=== PATIENT | female | born 1985 | race American Indian/Alaskan Native ===

== ENCOUNTER → 2016-08-06 | Outpatient (CLI) | payer OTHER ==
--- NOTE | 2016-08-07 07:58 | US ---
EXAMINATION TYPE: US pelvis complete transvag DATE OF EXAM: 08/06/2016 6:35 PM COMPARISON: NONE CLINICAL HISTORY: Ovarian Cyst N28.20. TECHNIQUE: Transvaginal (TV) and Transabdominal (TA) Date of LMP: About 1 month ago EXAM MEASUREMENTS: Uterus: 6.9 x 3.9 x 4.1 cm cm Endometrial Stripe: 0.8 cm Right Ovary: 4.0 x 2.1 x 1.6 cm Left Ovary: 3.4 x 2.5 x 2.0 cm Findings: 1. Uterus: wnl 2. Endometrium: wnl 3. Right Ovary: wnl 4. Left Ovary: wnl 5. Bilateral Adnexa: Tiny amount of free fluid visualized adjacent to the left ovary 6. Posterior cul-de-sac: Tiny amount of free fluid visualized in the posterior cul de sac IMPRESSION: Tiny amount of free fluid. Otherwise unremarkable study.
== END | disposition home or self-care (01) ==
LOC: RADUSMAIN 17:52
PROVIDERS: ATTEND Family Medicine
DX: N83.209 Unspecified ovarian cyst, unspecified side (principal)
CPT/HCPCS: 76830; 76856

== ENCOUNTER 2017-07-06 10:39 | Emergency (ER) | payer OTHER ==
--- NOTE | 2017-07-06 13:19 | ED ---
Skin/Abscess/FB HPI - General Chief complaint: Skin/Abscess/Foreign Body Stated complaint: Boil Time Seen by Provider: 07/06/17 12:03 Source: patient, RN notes reviewed Mode of arrival: ambulatory Limitations: no limitations - History of Present Illness Initial comments: This is a 31-year-old female who presents to the emergency department with chief complaint of boil. Patient states that yesterday she noticed an area of swelling on her left buttock. She states that this area is painful. Patient states that she has a history of abscesses that have been drained in the past. Denies any fevers or chills. Denies any drainage from the abscess. Denies chest pain, shortness of breath, abdominal pain, nausea or vomiting, constipation or diarrhea, dysuria or hematuria, numbness or tingling, headache or vision changes. - Related Data Home Medications Medication Instructions Recorded Confirmed Insulin Aspart [NovoLOG] 0 unit SQ 07/18/14 02/15/15 Previous Rx's Medication Instructions Recorded Insulin Aspart [NovoLOG] 6 units SQ ACHS #1 vial 02/15/15 predniSONE 50 mg PO DAILY #5 tab 05/01/16 Sulfamethox-Tmp 800-160Mg [Bactrim 1 tab PO Q12HR #20 tab 07/06/17 DS 800-160 mg] Allergies Allergy/AdvReac Type Severity Reaction Status Date / Time fluconazole Allergy Rash/Hives Verified 07/06/17 11:11 Review of Systems ROS Statement: Those systems with pertinent positive or pertinent negative responses have been documented in the HPI. ROS Other: All systems not noted in ROS Statement are negative. Past Medical History Past Medical History: Diabetes Mellitus History of Any Multi-Drug Resistant Organisms: None Reported Past Surgical History: Adenoidectomy, Ear Surgery Past Psychological History: No Psychological Hx Reported Smoking Status: Current every day smoker Past Alcohol Use History: Occasional Past Drug Use History: None Reported General Exam - General Exam Comments Initial Comments: General: Awake and alert, well-developed; in no apparent distress. HEENT: Head atraumatic, normocephalic. Pupils are equal, round and reactive to light. Extraocular movements intact. Oropharynx moist without erythema or exudate. Neck: Supple. Normal ROM. Cardiovascular: Regular rate and rhythm. No murmurs, rubs or gallops. Chest symmetrical. Respiratory: Lungs clear to auscultation bilaterally. No wheezes, rales or rhonchi. Normal respiratory effort with no use of accessory muscles. Musculoskeletal: Normal ROM, no tenderness bilateral upper and lower extremities. Ambulating normally. Skin: [place], warm and dry without rashes. Approximately 1.5 cm area of fluctuance with overlying erythema and a small central pustule inner left buttock. No drainage noted. Neurological: Alert and oriented x3. CN II-XII grossly intact. Speech is fluent and answers are appropriate. No focal neuro deficits. Psychiatric: Normal mood and affect. No overt signs of depression or anxiety noted. Limitations: no limitations Course Vital Signs 07/06/17 11:08 Temperature 98.7 F Pulse Rate 80 Respiratory 16 Rate Blood Pressure 136/77 O2 Sat by Pulse 100 Oximetry Procedures - Incision & Drainage Consent Obtained: verbal consent Indication: abscess Site: buttock (left) Size (cm): 2 Anesthetic Used: lidocaine 1% Amount (mLs): 2 I&D Cleaning Method: Alcohol Wipe Scalpel Used: #15 I&D Drainage Obtained: Pus, Blood Culture Obtained?: No Patient Tolerated Procedure: well, no complications Medical Decision Making - Medical Decision Making This is a 31-year-old female who presents to the emergency department with chief complaint of boil. Patient has a 1.5 cm abscess on inner left buttock. I &D was performed. Patient tolerated well without complication. Educated patient that she is to allow the abscess to drain and to apply warm compresses. She will be discharged home with a prescription for Bactrim. Return parameters were discussed. She is in agreement with plan and voices understanding. All questions were answered. Disposition Clinical Impression: Abscess Disposition: HOME SELF-CARE Condition: Good Instructions: Abscess Incision and Drainage (ED) Additional Instructions: Please allow abscess to drain. May apply warm compresses to the area. Please take medications as prescribed. Please follow up with primary care provider within 1-2 days. Return to emergency department if symptoms should worsen or any concerns arise. Prescriptions: Sulfamethox-Tmp 800-160Mg [Bactrim DS 800-160 mg] 1 tab PO Q12HR #20 tab Referrals: Andres Guerra MD [Primary Care Provider] - 1-2 days Time of Disposition: 13:18
[2017-07-07 23:01] VITALS: BP 136/77; PULSE 80; RESP 16; TEMP 98.7
== END 2017-07-06 13:24 | disposition home or self-care (01) ==
LOC: EC 10:39
DX: L02.31 Cutaneous abscess of buttock (principal); E11.9 Type 2 diabetes mellitus without complications; F17.200 Nicotine dependence, unspecified, uncomplicated; Z79.4 Long term (current) use of insulin; Z88.8 Allergy status to other drugs, medicaments and biological substances
CPT/HCPCS: 10060; 99283

== ENCOUNTER → 2018-12-26 | Outpatient (CLI) | payer BC ==
[2018-12-26 19:02] LABS: Hemoglobin A1C 7.3 % (4.0-6.0)
== END | disposition home or self-care (01) ==
LOC: LABWHC1 10:19
PROVIDERS: ATTEND Internal Medicine
DX: E10.65 Type 1 diabetes mellitus with hyperglycemia (principal)
CPT/HCPCS: 36415; 83036

== ENCOUNTER 2019-05-13 00:20 | Emergency (ER) | payer BC ==
[2019-05-13 00:27] VITALS: BP 143/91; PULSE 86; RESP 20; TEMP 97.9
[2019-05-13] MEDS ORDERED: LIDOCAINE 1%-EPI 1:100,000 20 ML VIAL SQ STA (00:32)
--- NOTE | 2019-05-13 01:12 | ED ---
General Adult HPI - General Chief complaint: Skin/Abscess/Foreign Body Stated complaint: Abscess Source: patient, family, RN notes reviewed Mode of arrival: ambulatory Limitations: no limitations - History of Present Illness Initial comments: 33-year-old female with a past medical history of IDDM presents to the emergency department for abscess. Patient states she has a abscess on her left buttocks. States she has had abscesses several times before but never in this area. Denies fevers or chills. States it has been there for about 3 days and is now painful to sit up on. States she tried to take a hot bath and pop the area but was unable to do so.Patient has no other complaints at this time including shortness of breath, chest pain, abdominal pain, nausea or vomiting, headache, or visual changes. - Related Data Home Medications Medication Instructions Recorded Confirmed INSULIN ASPART (NovoLOG) [NovoLOG] 0 unit SQ 07/18/14 02/15/15 Previous Rx's Medication Instructions Recorded Insulin Aspart [NovoLOG] 6 units SQ ACHS #1 vial 02/15/15 predniSONE 50 mg PO DAILY #5 tab 05/01/16 Sulfamethox-Tmp 800-160Mg [Bactrim 1 tab PO Q12HR #20 tab 07/06/17 DS 800-160 mg] Cephalexin [Keflex] 500 mg PO Q6H 10 Days #40 cap 05/13/19 Sulfamethox-Tmp 800-160Mg [Bactrim 1 tab PO Q12HR #20 tab 05/13/19 DS 800-160 mg] Allergies Allergy/AdvReac Type Severity Reaction Status Date / Time fluconazole Allergy Rash/Hives Verified 05/13/19 00:27 Review of Systems ROS Statement: Those systems with pertinent positive or pertinent negative responses have been documented in the HPI. ROS Other: All systems not noted in ROS Statement are negative. Past Medical History Past Medical History: Diabetes Mellitus, Hearing Disorder / Deafness Additional Past Medical History / Comment(s): Type I diabetes History of Any Multi-Drug Resistant Organisms: None Reported Past Surgical History: Adenoidectomy, Ear Surgery Past Psychological History: No Psychological Hx Reported Smoking Status: Former smoker Past Alcohol Use History: Occasional Past Drug Use History: None Reported General Exam Limitations: no limitations General appearance: alert, in no apparent distress Head exam: Present: atraumatic, normocephalic, normal inspection Eye exam: Present: normal appearance, PERRL, EOMI. Absent: scleral icterus, conjunctival injection, periorbital swelling ENT exam: Present: normal exam, mucous membranes moist Neck exam: Present: normal inspection. Absent: tenderness, meningismus, lymphadenopathy Respiratory exam: Present: normal lung sounds bilaterally. Absent: respiratory distress, wheezes, rales, rhonchi, stridor Cardiovascular Exam: Present: regular rate, normal rhythm, normal heart sounds. Absent: systolic murmur, diastolic murmur, rubs, gallop, clicks Skin exam: Present: other (There is a 2 cm x 2 cm abscess noted on the left inferior buttock with mild surrounding erythema extending about 4 cm x 4 cm. This is not a perianal abscess.) Course Vital Signs 05/13/19 00:23 Temperature 97.9 F Pulse Rate 86 Respiratory 20 Rate Blood Pressure 143/91 O2 Sat by Pulse 97 Oximetry Procedures - Incision & Drainage Consent Obtained: verbal consent Indication: Abscess Site: buttock Size (cm): 2 Anesthetic Used: lidocaine 1%, with epi Amount (mLs): 2 I&D Cleaning Method: Chloroprep Scalpel Used: #11 I&D Drainage Obtained: Pus Patient Tolerated Procedure: well, no complications Medical Decision Making - Medical Decision Making Exam revealed a 2 cm abscess on the left buttock with surrounding erythema consistent with abscess with underlying cellulitis. Brandi RUSS was present on exam and procedure. Area was cleaned and then lanced using an 11 blade. Purulent material expelled. There is some mild surrounding cellulitis. Patient was put on Bactrim and Keflex. Patient was directed to follow up with primary care in 1-2 days. Discussed strict return parameters. - Lab Data Lab Results 05/13/19 Range/Units 01:06 Urine HCG, Qual Not Detected (Not Detectd) Disposition Clinical Impression: Abscess Disposition: HOME SELF-CARE Condition: Good Instructions (If sedation given, give patient instructions): Abscess Incision and Drainage (ED), Abscess (ED) Additional Instructions: Please take antibiotics as directed. Apply warm compresses. Follow up with primary care in 1-2 days. If symptoms are not improving or they are worsening be sure to return immediately to the emergency department. Prescriptions: Sulfamethox-Tmp 800-160Mg [Bactrim DS 800-160 mg] 1 tab PO Q12HR #20 tab Cephalexin [Keflex] 500 mg PO Q6H 10 Days #40 cap Is patient prescribed a controlled substance at d/c from ED?: No Referrals: Chica Camacho DO [Primary Care Provider] - 1-2 days Time of Disposition: 01:33
[2019-05-13] MEDS ORDERED: CEPHALEXIN 500MG STARTER PACK 4 CAP BTL PO STA (01:35)
[2019-05-13] MEDS ORDERED: SULFAMETH-TMP DS STARTER PACK 2 TAB BTL PO STA (01:35)
== END 2019-05-13 01:42 | disposition home or self-care (01) ==
LOC: EC 00:20
DX: L02.31 Cutaneous abscess of buttock (principal); E11.9 Type 2 diabetes mellitus without complications; Z79.899 Other long term (current) drug therapy; Z88.3 Allergy status to other anti-infective agents; Z87.891 Personal history of nicotine dependence
CPT/HCPCS: 10060; 81025; 99283

== ENCOUNTER → 2022-02-13 | Outpatient (CLI) | payer BC | END | disposition home or self-care (01) | LOC: LABWHC1 09:48 | PROVIDERS: ATTEND Family Medicine | DX: E10.65 Type 1 diabetes mellitus with hyperglycemia (principal) | CPT/HCPCS: 36415; 83036 ==

== ENCOUNTER → 2022-09-16 | Outpatient (CLI) | payer BC | END | disposition home or self-care (01) | LOC: LABPAT 09:51 | PROVIDERS: ATTEND Obstetrics & Gynecology Obstetrics | DX: Z01.812 Encounter for preprocedural laboratory examination (principal); N92.0 Excessive and frequent menstruation with regular cycle | CPT/HCPCS: 85025; 93005 ==

== ENCOUNTER → 2022-09-23 | Outpatient (CLI) | payer BC ==
[2022-09-23 23:11] LABS: Basophils # (A) 0.05 X 10*3/uL (0.00-0.10); Basophils % (A) 0.8 %; Eosinophils # (A) 0.08 X 10*3/uL (0.04-0.35); Eosinophils % (A) 1.3 %; HGB 14.1 g/dL (12.0-15.0); Immature Grans, Automated 0.3 %; Lymphocytes # (A) 1.41 X 10*3/uL (0.90-5.00); Lymphocytes % (A) 22.5 %; MCH 28.8 pg (27.0-32.0); MCV 89.8 fL (80.0-97.0); Mean Platelet Volume 9.9 fL (9.5-12.2); Monocytes # (A) 0.54 X 10*3/uL (0.20-1.00); Monocytes % (A) 8.6 %; NRBC Per 100 WBC 0 /100 WBCS (0.0-0.0); Neutrophils # (A) 4.17 X 10*3/uL (1.80-7.70); Neutrophils % (A) 66.5 %; Platelet Count 356 X 10*3/uL (140-440); RDW 12.4 % (11.5-14.5); WBC 6.27 X 10*3/uL (4.50-10.00)
== END | disposition home or self-care (01) ==
LOC: LABPAT 14:42
PROVIDERS: ATTEND Obstetrics & Gynecology Obstetrics
DX: Z01.812 Encounter for preprocedural laboratory examination (principal); N92.0 Excessive and frequent menstruation with regular cycle; E10.9 Type 1 diabetes mellitus without complications
CPT/HCPCS: 85025

== ENCOUNTER 2022-10-13 06:30 | Day surgery (SDC) | payer BC ==
[2022-10-08 11:37] VITALS: BMI 32.1
[~2022-10-13 06:30] MED LIST: Pre Op ABX Message 1 EACH MISC MISCELLANE ONE
[2022-10-13] MEDS ORDERED: DEXAMETHASONE SOD PHOSPHATE 4 MG/ML 1 ML VIAL IV ONE (06:48)
[2022-10-13] MEDS ORDERED: SCOPOLAMINE 1 MG/72 HR PATCH TRANSDERM ONE (06:48)
[2022-10-13] MEDS ORDERED: LACTATED RINGERS 1,000 ML IV SCH (06:48)
[2022-10-13] MEDS ORDERED: LIDOCAINE 1% (10MG/ML) FOR IV START INTRADERMA PRN (06:48)
[2022-10-13] MEDS ORDERED: HYDROmorphone 0.5 MG/0.5 ML SYRINGE IVP PRN (07:00)
[2022-10-13] MEDS ORDERED: ONDANSETRON 4 MG/2 ML VIAL IVP PRN (07:00)
[2022-10-13 07:18] LABS: Glucose,Whole Blood 147 mg/dL (70-110)
[2022-10-13] MEDS ORDERED: MIDAZOLAM 2 MG/2 ML VIAL ONE (07:46)
[2022-10-13] MEDS ORDERED: PROPOFOL 10 MG/ML 20 ML VIAL IV ONE (07:46)
[2022-10-13] MEDS ORDERED: KETOROLAC 30 MG/ML 1 ML VIAL ONE (07:46)
[2022-10-13] MEDS ORDERED: LIDOCAINE 2% INJ 20 MG/ML (2 ML VIAL) ONE (07:46)
[2022-10-13] MEDS ORDERED: fentaNYL (PF) 50 MCG/ML 2 ML AMP ONE (07:46)
--- NOTE | 2022-10-13 08:19 | P.OP ---
Date of Procedure: 10/13/22 Preoperative Diagnosis: Heavy menstrual bleeding Postoperative Diagnosis: Same Procedure(s) Performed: Hysteroscopy, dilation and curettage, endometrial ablation with NovaSure Anesthesia: MAC Surgeon: Fallon Garcia Estimated Blood Loss (ml): 5 IV fluids (ml): 700 Urine output (ml): 10 Pathology: other (Endometrial curettings) Condition: stable Disposition: PACU Indications for Procedure: Heavy menstrual bleeding Operative Findings: Normal appearing uterine cavity with polyps is appreciated. Total length of 8 cm, NovaSure measurements of length of 4, width of 3.2, power of 70, cycle length 99 seconds Description of Procedure: Patient was taken back to the operating suite where general anesthesia was obtained without difficulty by the anesthesia department. She was prepped and draped in the normal sterile fashion in the dorsal lithotomy position a red rubber catheter was used to drain the bladder of scant yellow urine. Patient had voided prior to coming back to the operating suite. A weighted speculum was placed in the posterior vaginal vault, the cervix is visualized and grasped a single-tooth tenaculum. Endocervical canal was then serially dilated. A hy steroscope was placed through the cervix and toward the endometrial cavity, an intact cavity was appreciated. Polyps were appreciated. Pictures were taken and the hysteroscope was removed. A sharp curettage was then performed this specimen was sent to pathology for analysis. The cervix was then further dilated in the NovaSure device was opened. The NovaSure was set the appropriate measurements for the patient's uterine cavity length of 4, width of 3.2, after cavity assessment was completed the cycle was allowed to proceed. Cycle was completed in 99 seconds. Afterwards the device was removed without difficulty intact. The single-tooth tenaculum was taken off of the anterior lip of the cervix and hemostasis was appreciated. All counts were correct 2 at the end of the procedure. Patient tolerated procedure well was taken the recovery room awake in stable condition.
[2022-10-13 08:22] VITALS: TEMP 97.1
[2022-10-13 08:44] VITALS: RESP 16
[2022-10-13 10:55] VITALS: BP 145/84; PULSE 68
== END 2022-10-13 11:14 | disposition home or self-care (01) ==
LOC: OR 06:30
PROVIDERS: ATTEND Obstetrics & Gynecology Obstetrics
DX: N84.0 Polyp of corpus uteri (principal); F12.90 Cannabis use, unspecified, uncomplicated; E10.9 Type 1 diabetes mellitus without complications; H91.90 Unspecified hearing loss, unspecified ear; F10.20 Alcohol dependence, uncomplicated; Z88.1 Allergy status to other antibiotic agents; Z79.899 Other long term (current) drug therapy; Z96.22 Myringotomy tube(s) status; Z98.890 Other specified postprocedural states; Z87.891 Personal history of nicotine dependence
CPT/HCPCS: 81025; 88305; 84703; 58563; J2250; J2405; J3010; J1885; J2704; J1170; J2001

== ENCOUNTER → 2023-01-30 | Outpatient (CLI) | payer BC | END | disposition home or self-care (01) | LOC: LABWHC1 12:06 | PROVIDERS: ATTEND Family Medicine | DX: E10.65 Type 1 diabetes mellitus with hyperglycemia (principal) | CPT/HCPCS: 36415; 83036 ==

== ENCOUNTER 2023-04-04 20:21 | Inpatient (IN) | payer BC ==
--- NOTE | 2023-04-04 20:47 | ED ---
Psych HPI - General Chief Complaint: Psychiatric Symptoms Stated Complaint: Suicidial Time Seen by Provider: 04/04/23 20:29 Source: patient, RN notes reviewed, old records reviewed Mode of arrival: EMS Limitations: no limitations - History of Present Illness Initial Comments: This is a 37-year-old female to the emergency department for evaluation of a. The patient presents today for evaluation regards to psychiatric illness patient does self-harm injury. Patient did self harm prior to arrival Does admit to suicidal thoughts with depression MD Complaint: suicidal ideation, feels depressed -: unknown Associated Psychiatric Symptoms: racing thoughts History of same: Yes Quality: constant Improves With: none Worsens With: none Context: significant life stressor Associated Symptoms: denies other symptoms Treatments Prior to Arrival: placed on mental health hold - Related Data Home Medications Medication Instructions Recorded Confirmed Insulin Aspart (For Pump) [NovoLOG 0.01 unit SQ-PUMP CONTINUOUS 10/08/22 04/04/23 (For Pump)] Escitalopram [Lexapro] 10 mg PO HS 04/04/23 04/04/23 Allergies Allergy/AdvReac Type Severity Reaction Status Date / Time fluconazole Allergy Rash/Hives Verified 04/04/23 21:50 Review of Systems ROS Statement: Those systems with pertinent positive or pertinent negative responses have been documented in the HPI. ROS Other: All systems not noted in ROS Statement are negative. Past Medical History Past Medical History: Diabetes Mellitus, Hearing Disorder / Deafness Additional Past Medical History / Comment(s): Type I diabetes History of Any Multi-Drug Resistant Organisms: None Reported Past Surgical History: Adenoidectomy, Ear Surgery Additional Past Surgical History / Comment(s): BILAT EYE SX FOR CORNEA EROSION- RT EYE DONE 09/08/22. BILAT TUBES IN EARS X 3. REMOVAL BONES IN LT EAR 20+ YEARS AGO Past Anesthesia/Blood Transfusion Reactions: No Reported Reaction Past Psychological History: No Psychological Hx Reported Smoking Status: Former smoker Past Alcohol Use History: Daily Past Drug Use History: None Reported - Past Family History Mother Family Medical History: No Reported History General Exam Limitations: no limitations General appearance: alert, in no apparent distress, anxious Head exam: Present: atraumatic, normocephalic, normal inspection Eye exam: Present: normal appearance, PERRL, EOMI. Absent: scleral icterus, conjunctival injection, periorbital swelling ENT exam: Present: normal exam, mucous membranes moist Neck exam: Present: normal inspection. Absent: tenderness, meningismus, lymphadenopathy Respiratory exam: Present: normal lung sounds bilaterally. Absent: respiratory distress, wheezes, rales, rhonchi, stridor Cardiovascular Exam: Present: regular rate, normal rhythm, normal heart sounds. Absent: systolic murmur, diastolic murmur, rubs, gallop, clicks GI/Abdominal exam: Present: soft, normal bowel sounds. Absent: distended, tenderness, guarding, rebound, rigid Extremities exam: Present: normal inspection, full ROM, normal capillary refill, other (left wrist abrasion superficial laceration). Absent: tenderness, pedal edema, joint swelling, calf tenderness Back exam: Present: normal inspection Neurological exam: Present: alert, oriented X3, CN II-XII intact Psychiatric exam: Present: normal affect, normal mood Skin exam: Present: warm, dry, intact, normal color. Absent: rash Course Vital Signs 04/04/23 20:29 Temperature 97.8 F Pulse Rate 72 Respiratory 18 Rate Blood Pressure 111/72 O2 Sat by Pulse 98 Oximetry - Reevaluation(s) Reevaluation #1: 04/04/23 22:25 Medical records reviewed Reevaluation #2: 04/04/23 22:25 Medical clear for psychiatric evaluation Medical Decision Making - Medical Decision Making 37 female with fever by psychiatry and will be admitted for psychiatric evaluation and treatment - Lab Data Lab Results 04/05/23 04/05/23 04/05/23 Range/Units 08:33 12:50 17:13 POC Glucose (mg/dL) 117 H 249 H (70-110) mg/dL POC Glu Manager Account Management ID Mel Huynh Amber Coronavirus (PCR) Not Detected (Not Detectd) Disposition Clinical Impression: Acute anxiety, Depression, Suicidal ideation Disposition: ADMITTED IP TO THIS HOSP Condition: Fair Is patient prescribed a controlled substance at d/c from ED?: No Referrals: None,Stated [REFERRING] - 1-2 days Time of Disposition: 22:30
[2023-04-05 08:36] LABS: Glucose,Whole Blood 117 mg/dL (70-110)
[2023-04-05 17:15] LABS: Glucose,Whole Blood 249 mg/dL (70-110)
[2023-04-05] MEDS ORDERED: IBUPROFEN 800 MG TAB PO STA (17:35)
[2023-04-05] MEDS ORDERED: ACETAMINOPHEN TAB 500 MG TAB PO STA (17:35)
[2023-04-05] MEDS ORDERED: IBUPROFEN 600 MG TAB PO PRN (18:47)
[2023-04-05] MEDS ORDERED: MAGNESIUM HYDROXIDE 2,400 MG/30 ML CUP PO PRN (18:47)
[2023-04-05] MEDS ORDERED: ACETAMINOPHEN TAB 325 MG TAB PO PRN (18:47)
[2023-04-05] MEDS ORDERED: LORazepam 2 MG/ML INJ IM PRN (18:47)
[2023-04-05] MEDS ORDERED: MAG HYDROX/AL HYDROX/SIMETH 30 ML CUP PO PRN (18:47)
[2023-04-05 20:08] LABS: Glucose,Whole Blood 428 mg/dL (70-110)
[2023-04-05] MEDS ORDERED: INSULIN ASPART (NovoLOG) 100 UNIT/ML VIAL SQ ONE (20:14)
[2023-04-05] MEDS ORDERED: ESCITALOPRAM 10 MG TAB PO SCH (21:00)
[2023-04-05] MEDS: INSULIN ASPART (NovoLOG) 100 UNIT/ML VIAL SQ SCH (21:00)
[2023-04-06 07:11] VITALS: RESP 16
[2023-04-06 07:42] LABS: Glucose,Whole Blood 428 mg/dL (70-110)
[2023-04-06] MEDS: INSULIN ASPART (NovoLOG) 100 UNIT/ML VIAL SQ SCH ×4 (08:01→20:14)
[2023-04-06] MEDS: INSULIN DETEMIR (LEVEMIR) 100 UNIT/ML SYR SQ SCH (11:21)
[2023-04-06 11:52] LABS: Basophils # (A) 0.1 k/uL (0-0.2); Basophils % (A) 0 %; Eosinophils # (A) 0.1 k/uL (0-0.7); Eosinophils % (A) 0 %; HCT 44.6 % (34.0-46.0); HGB 14.5 gm/dL (11.4-16.0); Lymphocytes # (A) 1.9 k/uL (1.0-4.8); Lymphocytes % (A) 13 %; MCH 29.8 pg (25.0-35.0); MCHC 32.5 g/dL (31.0-37.0); MCV 91.6 fL (80.0-100.0); Mean Platelet Volume 7.4; Monocytes # (A) 0.4 k/uL (0-1.0); Monocytes % (A) 3 %; Neutrophils # (A) 12.3 k/uL (1.3-7.7); Neutrophils % (A) 83 %; Platelet Count 348 k/uL (150-450); RBC 4.87 m/uL (3.80-5.40); RDW 12.5 % (11.5-15.5); WBC 14.9 k/uL (3.8-10.6)
[2023-04-06 12:08] LABS: ALT 19 U/L (4-34); AST 18 U/L (14-36); African American GFR (CKD) >90 (>60 ml/min/1.73 sqM); Albumin 4.1 g/dL (3.5-5.0); Alkaline Phosphatase 131 U/L (38-126); Anion Gap 13 mmol/L; Blood Urea Nitrogen 18 mg/dL (7-17); Calcium 9.6 mg/dL (8.4-10.2); Carbon Dioxide 23 mmol/L (22-30); Chloride 99 mmol/L (98-107); Glucose 262 mg/dL (74-99); Non-African American GFR(CKD) >90 (>60 ml/min/1.73 sqM); Potassium 4.5 mmol/L (3.5-5.1); Sodium 135 mmol/L (137-145); Total Bilirubin 0.6 mg/dL (0.2-1.3); Total Protein 7.5 g/dL (6.3-8.2)
[2023-04-06 12:54] LABS: Glucose,Whole Blood 198 mg/dL (70-110)
--- NOTE | 2023-04-06 13:41 | P.HPIM ---
History of Present Illness H&P Date: 04/06/23 Chief Complaint: Suicidal with intentional self-harm This is a 37-year-old female with past medical history significant for diabetes mellitus type 1, on insulin pump, depression, former nicotine dependence, consumes 1-2 beers nightly, occasional CBD gummies, morbid obesity, BMI 33 and multiple other medical issues admitted to the inpatient mental health unit with depression, suicidal ideation, self-inflicted harm and multiple other medical issues. Patient attempted to cut her left wrist; left wrist superficial laceration, well approximated, no drainage-reports tender. Hemoglobin 14.5, platelets 348. Insulin pump off , blood sugars uncontrolled-appears she only receives some short acting during the night. 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 Reports her blood sugars are usually in the 200s and that she refills her reservoir approximately every 3 days. Hemoglobin A1c ordered and pending Denies chest pain, palpitations or shortness of breath. Maintaining O2 sats in the high 90s on room air. Ambulating, tolerating exertion well. Denies lightheadedness dizziness or focal deficits. Afebrile, WBC 14.9. Renal function stable, Lotrel lites within normal limits. TSH 0.98. Review of Systems ROS Statement: Those systems with pertinent positive or pertinent negative responses have been documented in the HPI. ROS Other: All systems not noted in ROS Statement are negative. Past Medical History Past Medical History: Diabetes Mellitus Additional Past Medical History / Comment(s): Type I diabetes History of Any Multi-Drug Resistant Organisms: None Reported Past Surgical History: Adenoidectomy, Ear Surgery Additional Past Surgical History / Comment(s): BILAT EYE SX FOR CORNEA EROSION- RT EYE DONE 09/08/22. BILAT TUBES IN EARS X 3. REMOVAL BONES IN LT EAR 20+ YEARS AGO Past Anesthesia/Blood Transfusion Reactions: No Reported Reaction Past Psychological History: Depression Smoking Status: Former smoker Past Alcohol Use History: Occasional Additional Past Alcohol Use History / Comment(s): QUIT SMOKING 2018 Past Drug Use History: None Reported - Past Family History Mother Family Medical History: No Reported History Medications and Allergies Home Medications Medication Instructions Recorded Confirmed Type Insulin Aspart (For Pump) [NovoLOG 0.01 unit SQ-PUMP CONTINUOUS 10/08/22 04/04/23 History (For Pump)] Escitalopram [Lexapro] 10 mg PO HS 04/04/23 04/04/23 History Allergies Allergy/AdvReac Type Severity Reaction Status Date / Time fluconazole Allergy Rash/Hives Verified 04/04/23 21:50 Physical Exam Vitals: Vital Signs Temp Pulse Pulse Resp BP BP Pulse Ox 04/06/23 07:02 98.3 F 94 16 110/58 98 04/05/23 19:27 97.8 F 84 14 126/71 97 04/05/23 19:14 95 18 122/80 96 Intake and Output 04/05/23 04/06/23 04/06/23 22:59 06:59 14:59 Other: Weight 85.842 kg PHYSICAL EXAM: VITAL SIGNS: [As above] GENERAL: Alert and oriented 3, Sitting up in chair, no acute distress HEENT: Normocephalic, Conjunctivae normal. eyes normal. NECK: Supple, No JVD. No thyroid enlargement. No LNs CARDIOVASCULAR: S1, S2 regular. No murmur RESPIRATION: Breath sounds diminished in the bases. No rhonchi or crackles. No bronchial breathing. ABDOMEN: Soft, obese, nontender . No guarding. no masses palpable. No ascites, No hepatosplenomegaly.Bowel sounds heard. LEGS: No edema. no swelling NERVOUS SYSTEM: Cranial N 2-12 grossly normal. Moves all 4 limbs. Diffuse weakness No focal deficits. Strength and sensation grossly intact.. Skin: Left wrist superficial laceration, well approximated, no drainage. Results CBC & Chem 7: 04/06/23 10:56 04/06/23 10:56 Labs: Abnormal Lab Results - Last 24 Hours (Table) 04/05/23 04/05/23 04/06/23 Range/Units 17:13 20:06 07:36 WBC (3.8-10.6) k/uL Neutrophils # (1.3-7.7) k/uL Sodium (137-145) mmol/L BUN (7-17) mg/dL Glucose (74-99) mg/dL POC Glucose (mg/dL) 249 H 428 H 428 H (70-110) mg/dL Alkaline Phosphatase (38-126) U/L 04/06/23 04/06/23 04/06/23 Range/Units 10:56 10:56 12:52 WBC 14.9 H (3.8-10.6) k/uL Neutrophils # 12.3 H (1.3-7.7) k/uL Sodium 135 L (137-145) mmol/L BUN 18 H (7-17) mg/dL Glucose 262 H (74-99) mg/dL POC Glucose (mg/dL) 198 H (70-110) mg/dL Alkaline Phosphatase 131 H (38-126) U/L Thrombosis Risk Factor Assmnt - Choose All That Apply Any of the Below Risk Factors Present?: Yes Each Factor Represents 1 point: Obesity (BMI >25) Other Risk Factors: No Other congenital or acquired thrombophilia - If yes, enter type in comment: No Thrombosis Risk Factor Assessment Total Risk Factor Score: 1 Thrombosis Risk Factor Assessment Level: Low Risk Assessment and Plan Assessment: Depression, suicidal ideation, self-inflicted superficial left wrist laceration Depression Anxiety Diabetes mellitus type 1, insulin pump currently on hold. Prior nicotine dependence Alcohol use daily Occasional CBD gummies Plan: Continue on current medication regime ,monitoring and symptomatic treatment. Close monitoring of blood sugars. Long-acting insulin, Lantus ordered with NovoLog sliding scale ,while pump is off. Thank you for the consult. We'll follow along with you, please call with any questions or concerns. The impression and plan of care has been dictated as directed. : I performed a history and examination of this patient, discussed the same with the dictator. I agree with the dictator's note ,documented as a scribe. Any additional findings or plans will be noted.
[2023-04-06] MEDS: FAMOTIDINE 20 MG TAB PO SCH (14:44)
--- NOTE | 2023-04-06 15:46 | P.HP ---
Psychiatric H&P - . H&P Date: 04/06/23 History & Physical: Allergies Allergy/AdvReac Type Severity Reaction Status Date / Time fluconazole Allergy Rash/Hives Verified 04/04/23 21:50 Vital Signs Temp 98.3 F 04/06/23 07:02 Pulse 94 04/06/23 07:02 Resp 16 04/06/23 07:02 BP 110/58 04/06/23 07:02 Pulse Ox 98 04/06/23 07:02 FiO2 Intake & Output 04/05/23 04/06/23 04/06/23 18:59 06:59 18:59 Weight 85.842 kg Laboratory Last Values POC Glucose (mg/dL) 428 mg/dL (70-110) H 04/06/23 07:36 POC Glu Business Project Analyst ID Rosita Merino 04/06/23 07:36 Coronavirus (PCR) Not Detected (Not Detectd) 04/05/23 12:50 04/06/23 10:48 IDENTIFYING DATA: Patient is a 37-year-old female who currently is and lives with her and her roommate in house, they have no kids, 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 HPI: Patient presented to the hospital on 04/04, she was presenting with depression and suicidal thoughts. Patient apparently claims that she has been in a fight more with her recently. She states that they are not getting along having relationship issues. She states that "he doesn't love me anymore". She was fairly tearful when talking about their relationship. She states that he's been getting along more with the female roommate however she is lesbian. He she states that her libido has been decreasing, they have a poor sexual relationship. She also claims that she isn't having mood lability and also anger issues and has been "snapping easier" on people. States that she does have depression and anxiety as well. States that she has been taking Lexapro 10 mg for the past couple months and initially found it to help however not any longer. States that her sleep and appetite are fair at this time. States that she does have suicidal thoughts however no plan or intent at this time. She denies any homicidal ideations intent or plan. At this time patient denies any auditory or visual hallucinations. Patient denies any flight of ideas racing thoughts and increased in goal directed behavior. Patient admits to using alcohol occasionally, one or 2 beers every other day, denies any history of abuse or tolerance and denies any withdrawal symptoms or history of withdrawals. PAST PSYCHIATRIC HISTORY: Patient states that she has history of depressive disorder. She was previously on Lexapro 10 mg daily at bedtime for mood/anxiety. Patient denies any previous psychiatric hospitalizations. Patient denies any psychiatric outpatient follow-up. Claims that she does have a history of cutting several years ago her arms. PMH:Past Medical History: Diabetes Mellitus, Hearing Disorder / Deafness Additional Past Medical History / Comment(s): Type I diabetes History of Any Multi-Drug Resistant Organisms: None Reported Past Surgical History: Adenoidectomy, Ear Surgery Additional Past Surgical History / Comment(s): BILAT EYE SX FOR CORNEA EROSION- RT EYE DONE 09/08/22. BILAT TUBES IN EARS X 3. REMOVAL BONES IN LT EAR 20+ YEARS AGO Past Anesthesia/Blood Transfusion Reactions: No Reported Reaction Past Psychological History: No Psychological Hx Reported Smoking Status: Former smoker Past Alcohol Use History: Daily Past Drug Use History: None Reported ALLERGIES: as per EMR CHEMICAL DEPENDENCY HISTORY: as per HPI FAMILY PSYCHIATRIC/SUBSTANCE USE HISTORY: Claims that she believes one of her uncles had schizophrenia SOCIAL HISTORY: Patient was born and raised in [place] and [facility]. She claims that she completed high school. 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 She has no kids. She is and lives with her and a roommate in house. Denies any legal history. MENTAL STATUS EXAM: General Appearance: Patient appears to be mildly overweight, short hair, wearing glasses, stated age is alert, directable, and attempts to cooperate. Patient appears to have fair hygiene and grooming. Behavior: Patient is seated without any agitated behavior. Attempts to cooperate. Tearful at times. Speech: Patient's speech is fluent and nonpressured. Mood/Affect: Patient reports their mood is depressed and anxious, affect is congruent Suicidality/Homicidality: Patient denies having any homicidal ideation intent or plan. She admits to suicidal thoughts however no intent or plan Perceptions: Patient denies any visual hallucinations and denies any auditory hallucinations Though content/process: There is no evidence of any delusional thought content and thought process is linear and goal-directed. [place] Memory and concentration: AOX3, grossly intact for the purposes of this session. Can spell "WORLD" backwards Judgment and insight: poor STRENGTHS/WEAKNESSES: strength is that patient is resilient. Weakness is that patient has poor judgment and is impulsive INTELLECT: average IMPRESSIONS: Major depressive disorder, without psychotic features PLAN: -Patient is admitted under voluntary status to MHU for stabilization of psychiatric symptoms and safety. Patient has signed adult voluntary form and medication consent and is placed in patient's chart. -Medications : Trintellix 10 mg daily for mood/anxiety, lamictal 25 mg bid for mood stabilization/depression -Ativan and Haldol PRN for agitation/aggression -Patient was informed of the risks, benefits and side effects of the medication and patient verbally consented to taking the medications. Patient signed med consent form and was placed in chart. -Internal Medicine consult to perform medical evaluation and physical. -NRT - not needed as patient does not smoke -SW on board for discharge planning. Encourage patient to participate in groups to work on coping skills. 04/06/23 15:41
[2023-04-06] MEDS: VORTIOXETINE HYDROBROMIDE 20 MG TABLET PO SCH (16:33)
[2023-04-06 16:47] LABS: LDL Cholesterol,Calculated 93.6 mg/dL (0.0-131.0)
[2023-04-06 17:50] LABS: Glucose,Whole Blood 345 mg/dL (70-110)
[2023-04-06 19:54] LABS: Glucose,Whole Blood 335 mg/dL (70-110)
[2023-04-06] MEDS: lamoTRIgine 25 MG TAB PO SCH (20:49)
[2023-04-06 22:55] LABS: Glucose,Whole Blood 171 mg/dL (70-110)
[2023-04-07 07:47] LABS: Glucose,Whole Blood 77 mg/dL (70-110)
[2023-04-07] MEDS: INSULIN DETEMIR (LEVEMIR) 100 UNIT/ML SYR SQ SCH (07:57)
[2023-04-07] MEDS: INSULIN ASPART (NovoLOG) 100 UNIT/ML VIAL SQ SCH ×4 (07:57→20:15)
[2023-04-07] MEDS: VORTIOXETINE HYDROBROMIDE 20 MG TABLET PO SCH (07:58)
[2023-04-07] MEDS: lamoTRIgine 25 MG TAB PO SCH ×2 (07:58→20:16)
[2023-04-07] MEDS: FAMOTIDINE 20 MG TAB PO SCH ×2 (07:58→08:41)
[2023-04-07 11:20] VITALS: BMI 32.5
[2023-04-07 12:35] LABS: Glucose,Whole Blood 274 mg/dL (70-110)
--- NOTE | 2023-04-07 13:45 | P.PN ---
Progress Note - Text Progress Note Date: 04/07/23 Interval History: Patient was seen today wandering the hallways and was agreeable to speak to wr iter in the office. Patient claims that she is doing a bit better today with regard to her mood and anxiety. She states that she was able to sleep much better last night. She claims that she has been taking her medication is not reporting any side effects. States that she has been going to some groups and try to participate as best she can. States the medications have been helping her dose for. She claims that she is not having any suicidal or homicidal ideations intent or plan today. Denying any auditory visual hallucinations. MENTAL STATUS EXAM: General Appearance: Patient appears to be mildly overweight, short hair, wearing glasses, stated age is alert, directable, and attempts to cooperate. Patient appears to have fair hygiene and grooming. Behavior: Patient is seated without any agitated behavior. Attempts to cooperate. Speech: Patient's speech is fluent and nonpressured. Mood/Affect: Patient reports their mood is improving mildly, affect is congruent Suicidality/Homicidality: Patient denies having any homicidal ideation intent or plan. She admits to suicidal thoughts however no intent or plan Perceptions: Patient denies any visual hallucinations and denies any auditory hallucinations Though content/process: There is no evidence of any delusional thought content and thought process is linear and goal-directed. Memory and concentration: AOX3, grossly intact for the purposes of this session Judgment and insight: poor, improving mildly IMPRESSIONS: Major depressive disorder, without psychotic features PLAN: -Patient is admitted under voluntary status to MHU for stabilization of psychiatric symptoms and safety. Patient has signed adult voluntary form and medication consent and is placed in patient's chart. -Medications : Continuous Trintellix 10 mg daily for mood/anxiety, lamictal 25 mg bid for mood stabilization/depression -Ativan and Haldol PRN for agitation/aggression -NRT - not needed as patient does not smoke -SW on board for discharge planning. Encourage patient to participate in groups to work on coping skills. Likely discharge in 1-2 days back home.
[2023-04-07] MEDS ORDERED: MICONAZOLE NITRATE 2% CREAM 14 GM TUBE TOPICAL ONE (13:47)
[2023-04-07] MEDS: buPROPion XL 150 MG TAB.ER.24H PO SCH (15:35)
[2023-04-07 17:56] LABS: Glucose,Whole Blood 272 mg/dL (70-110)
[2023-04-07 20:12] LABS: Glucose,Whole Blood 240 mg/dL (70-110)
[2023-04-08] MEDS ORDERED: INSULIN DETEMIR (LEVEMIR) 100 UNIT/ML SYR SQ SCH (07:00)
[2023-04-08 07:36] LABS: Glucose,Whole Blood 405 mg/dL (70-110)
[2023-04-08] MEDS: lamoTRIgine 25 MG TAB PO SCH ×2 (07:45→20:34)
[2023-04-08] MEDS: buPROPion XL 150 MG TAB.ER.24H PO SCH (07:45)
[2023-04-08] MEDS: FAMOTIDINE 20 MG TAB PO SCH (07:46)
[2023-04-08] MEDS: INSULIN ASPART (NovoLOG) 100 UNIT/ML VIAL SQ SCH ×4 (07:48→20:34)
[2023-04-08 10:21] LABS: Glucose,Whole Blood 352 mg/dL (70-110)
--- NOTE | 2023-04-08 12:02 | P.PN ---
Progress Note - Text Progress Note Date: 04/08/23 Interval History: Patient was seen today wandering the hallways and was agreeable to speak to wr iter in the office. Patient claims that she is doing a bit better today. she spoke about tolerating the new medication well. we spoke more about the coverage of the medication and also to the side effect profile. She states that she is feeling more optimistic. She was visited by her yesterday and states that it went well. She claims that she has electronically groups and socializing as much she can. States that her mood and anxiety even improving. She is not reporting any side effects at this time. Wyatt that she slept fairly throughout the night. She claims that she is not having any suicidal or homicidal ideations intent or plan today. Denying any auditory visual hallucinations. MENTAL STATUS EXAM: General Appearance: Patient appears to be mildly overweight, short hair, wearing glasses, stated age is alert, directable, and attempts to cooperate. Patient appears to have fair hygiene and grooming. Behavior: Patient is seated without any agitated behavior. cooperative Speech: Patient's speech is fluent and nonpressured. Mood/Affect: Patient reports their mood is improving mildly, affect is congruent , improving mildly Suicidality/Homicidality: Patient denies having any homicidal ideation intent or plan. she denies any suicidal thoughts, no intent or plan. Perceptions: Patient denies any visual hallucinations and denies any auditory hallucinations Though content/process: There is no evidence of any delusional thought content and thought process is linear and goal-directed. Memory and concentration: AOX3, grossly intact for the purposes of this session Judgment and insight: improving mildly IMPRESSIONS: Major depressive disorder, without psychotic features PLAN: -Patient is admitted under voluntary status to MHU for stabilization of psychiatric symptoms and safety. Patient has signed adult voluntary form and medication consent and is placed in patient's chart. -Medications : Welbutrin XL 150 mg daily for mood/anxiety, lamictal 25 mg bid for mood stabilization/depression. -Ativan and Haldol PRN for agitation/aggression -NRT - not needed as patient does not smoke -SW on board for discharge planning. Encourage patient to participate in groups to work on coping skills. likely discharge back home tomorrow
[2023-04-08 12:44] LABS: Glucose,Whole Blood 248 mg/dL (70-110)
[2023-04-08] MEDS ORDERED: INSULIN DETEMIR (LEVEMIR) 100 UNIT/ML SYR SQ ONE (13:00)
[2023-04-08] MEDS: LORazepam 1 MG TAB PO PRN (16:59)
[2023-04-08 17:31] LABS: Glucose,Whole Blood 339 mg/dL (70-110)
[2023-04-08 20:05] LABS: Glucose,Whole Blood 207 mg/dL (70-110)
[2023-04-08 22:40] LABS: Glucose,Whole Blood 173 mg/dL (70-110)
[2023-04-09] MEDS ORDERED: INSULIN DETEMIR (LEVEMIR) 100 UNIT/ML SYR SQ SCH (07:00)
[2023-04-09 07:38] VITALS: BP 128/62; PULSE 80; TEMP 97.7
[2023-04-09 07:49] LABS: Glucose,Whole Blood 205 mg/dL (70-110)
[2023-04-09] MEDS: lamoTRIgine 25 MG TAB PO SCH (07:56)
[2023-04-09] MEDS: buPROPion XL 150 MG TAB.ER.24H PO SCH (07:56)
[2023-04-09] MEDS: INSULIN ASPART (NovoLOG) 100 UNIT/ML VIAL SQ SCH (07:56)
[2023-04-09] MEDS: FAMOTIDINE 20 MG TAB PO SCH (07:57)
[2023-04-09] MEDS: LORazepam 1 MG TAB PO PRN (07:58)
[2023-04-09] MEDS ORDERED: INSULIN DETEMIR (LEVEMIR) 100 UNIT/ML SYR SQ ONE (08:42)
--- NOTE | 2023-04-09 12:00 | P.DS ---
Providers Date of admission: 04/05/23 18:44 Expected date of discharge: 04/09/23 Attending physician: Scott Palacio MD Consults: 04/05/23 18:47 Consult Physician Routine Consulting Provider: Cecilio Chandler Consult Reason/Comments: H&P and medical Do you want consulting provider notified?: Yes Primary care physician: Cecilio Chandler - Discharge Diagnosis(es) (1) Major depressive disorder without psychotic features Current Visit: Yes Status: Acute Priority: High Hospital Course: Admission HPI: Admission note was completed by proposal manager writer "Patient is a 37-year-old female who currently is and lives with her and her roommate in house, they have no kids, 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 Patient presented to the hospital on 04/04, she was presenting with depression and suicidal thoughts. Patient apparently claims that she has been in a fight more with her recently. She states that they are not getting along having relationship issues. She states that "he doesn't love me anymore". She was fairly tearful when talking about their relationship. She states that he's been getting along more with the female roommate however she is lesbian. He she states that her libido has been decreasing, they have a poor sexual relationship. She also claims that she isn't having mood lability and also anger issues and has been "snapping easier" on people. States that she does have depression and anxiety as well. States that she has been taking Lexapro 10 mg for the past couple months and initially found it to help however not any longer. States that her sleep and appetite are fair at this time. States that she does have suicidal thoughts however no plan or intent at this time. She denies any homicidal ideations intent or plan. At this time patient denies any auditory or visual hallucinations. Patient denies any flight of ideas racing thoughts and increased in goal directed behavior. Patient admits to using alcohol occasionally, one or 2 beers every other day, denies any history of abuse or tolerance and denies any withdrawal symptoms or history of withdrawals." Hospital course: Upon admission to the unit patient was directable and agreeable to commence treatment and signed adult voluntary form. Patient got along well with other patients on the unit and followed unit protocol. Patient was compliant with the medications and denied any side effects throughout hospital course. Patient was started on trintellix initially however due to significant cost of medication, needed to be switched to wellbutrin XL 150 mg daily for mood/anxiety. Patient was also started on lamictal 25 mg bid for mood stabilization/depression. v istaril prn for sleep. Patient spoke of her stressors and engaged in therapy both group and individual. Patient was also seen by medical team for history and physical exam. Throughout the course of the hospitalization patient gradually improved with regards to mood, anxiety, irritability, sleep and became more future oriented with improved insight and judgment. On the day of discharge patient denied any suicidal or homicidal ideations intent or plan denied any auditory or visual hallucinations. Patient endorsed wanting to live for her health and family/future. The patient denied any access to guns or weapons. Patient denied any paranoia and did not endorse any delusions. Patient does not have a significant history of substance abuse and was counseled on abstaining from all substances including alcohol and marijuana. Patient was also counseled on the medications and need for regular compliance and was encouraged to follow- up with their outpatient appointment for mental health and also for primary care. Prior to discharge a family meeting will be arranged by social services director to answer any questions and ensure safety upon discharge. Salesperson [employer] was also able to speak to pts Charlie at pts request to answer questions about medications and treatment going forward. Mental status exam: General Appearance: Patient appears to be mildly overweight, short hair, wearing glasses,stated age is alert, pleasant, and cooperative. Patient is in no acute distress and has improved hygiene and grooming Behavior: Patient is calmly seated without any agitated behavior. Speech: Patient's speech is fluent and nonpressured. Mood/Affect: Patient reports their mood is "better", affect is congruent and euthymic. Suicidality/Homicidality: Patient denies having any suicidal or homicidal idea tion intent or plan. Perceptions: Patient denies any auditory or visual hallucinations. Though content/process: There is no evidence of any delusional thought content and thought process is linear and goal-directed. more future oriented Memory and concentration: AOX3, grossly intact for the purposes of this session. Can spell "WORLD" backwards correctly. Judgment and insight: improved with guarded prognosis Impression: Major depressive disorder without psychotic features Plan: -Continue with discharge today as patient has improved and stabilized psychiatrically and is not currently an imminent threat to herself and/or others. Patient will remain at chronically elevated risk for harm to self and/or others due to her impulsivity. -Continue medications: Wellbutrin XL 150 mg daily for mood/anxiety, Lamictal 25 mg twice a day for mood stabilization/depression, Vistaril when necessary for anxiety. -Patient was counseled on the need for medication compliance and appropriate follow-up at mental health and also primary care for medical issues. Patient verbalized understanding and agreed. -Social work to arrange for and conduct family meeting to ensure safety upon discharge and answer any questions/concerns. Social work also to arrange for patients follow up appointments for psychiatric care along with follow up with primary care provider. -Patient counseled on abstaining from recreational drugs and marijuana and alcohol. Was informed/educated on the adverse effects on their physical and mental health. Patient verbally agreed and understood. -Patient was instructed to return to the hospital or seek immediate medical care if their psychiatric or medical symptoms do worsen or reoccur. Allergies Allergy/AdvReac Type Severity Reaction Status Date / Time fluconazole Allergy Rash/Hives Verified 04/04/23 21:50 Laboratory Results WBC 14.9 k/uL (3.8-10.6) H 04/06/23 10:56 RBC 4.87 m/uL (3.80-5.40) 04/06/23 10:56 Hgb 14.5 gm/dL (11.4-16.0) 04/06/23 10:56 Hct 44.6 % (34.0-46.0) 04/06/23 10:56 MCV 91.6 fL (80.0-100.0) 04/06/23 10:56 MCH 29.8 pg (25.0-35.0) 04/06/23 10:56 MCHC 32.5 g/dL (31.0-37.0) 04/06/23 10:56 RDW 12.5 % (11.5-15.5) 04/06/23 10:56 Plt Count 348 k/uL (150-450) 04/06/23 10:56 MPV 7.4 04/06/23 10:56 Neutrophils % 83 % 04/06/23 10:56 Lymphocytes % 13 % 04/06/23 10:56 Monocytes % 3 % 04/06/23 10:56 Eosinophils % 0 % 04/06/23 10:56 Basophils % 0 % 04/06/23 10:56 Neutrophils # 12.3 k/uL (1.3-7.7) H 04/06/23 10:56 Lymphocytes # 1.9 k/uL (1.0-4.8) 04/06/23 10:56 Monocytes # 0.4 k/uL (0-1.0) 04/06/23 10:56 Eosinophils # 0.1 k/uL (0-0.7) 04/06/23 10:56 Basophils # 0.1 k/uL (0-0.2) 04/06/23 10:56 Sodium 135 mmol/L (137-145) L 04/06/23 10:56 Potassium 4.5 mmol/L (3.5-5.1) 04/06/23 10:56 Chloride 99 mmol/L (98-107) 04/06/23 10:56 Carbon Dioxide 23 mmol/L (22-30) 04/06/23 10:56 Anion Gap 13 mmol/L 04/06/23 10:56 BUN 18 mg/dL (7-17) H 04/06/23 10:56 Creatinine 0.76 mg/dL (0.52-1.04) 04/06/23 10:56 Est GFR (CKD-EPI)AfAm >90 (>60 ml/min/1.73 sqM) 04/06/23 10:56 Est GFR (CKD-EPI)NonAf >90 (>60 ml/min/1.73 sqM) 04/06/23 10:56 Glucose 262 mg/dL (74-99) H 04/06/23 10:56 POC Glucose (mg/dL) 205 mg/dL (70-110) H 04/09/23 07:37 POC Glu Supervisor Metal Hanging ID Rosita Merino 04/09/23 07:[address] Glu mg/dL 214 mg/dL 04/06/23 10:56 Hemoglobin A1c 9.1 % (<=6.0) H 04/06/23 10:56 Calcium 9.6 mg/dL (8.4-10.2) 04/06/23 10:56 Total Bilirubin 0.6 mg/dL (0.2-1.3) 04/06/23 10:56 AST 18 U/L (14-36) 04/06/23 10:56 ALT 19 U/L (4-34) 04/06/23 10:56 Alkaline Phosphatase 131 U/L (38-126) H 04/06/23 10:56 Total Protein 7.5 g/dL (6.3-8.2) 04/06/23 10:56 Albumin 4.1 g/dL (3.5-5.0) 04/06/23 10:56 Triglycerides 89.00 mg/dL (0.00-149.00) 04/06/23 10:56 Cholesterol 177.00 mg/dL (0.00-200.00) 04/06/23 10:56 LDL Cholesterol, Calc 93.6 mg/dL (0.0-131.0) 04/06/23 10:56 VLDL Cholesterol, Calc 17.80 mg/dL (5.00-40.00) 04/06/23 10:56 HDL Cholesterol 65.60 mg/dL (40.00-60.00) H 04/06/23 10:56 Cholesterol/HDL Ratio 2.70 Ratio 04/06/23 10:56 TSH 0.980 mIU/L (0.465-4.680) 04/06/23 10:56 Coronavirus (PCR) Not Detected (Not Detectd) 04/05/23 12:50 Vital Signs Temp 97.7 F 04/09/23 07:08 Pulse 80 04/09/23 07:08 Resp 16 04/09/23 07:08 BP 128/62 04/09/23 07:08 Pulse Ox 98 04/09/23 07:08 FiO2 Patient Condition at Discharge: Stable Plan - Discharge Summary Discharge Rx Participant: No New Discharge Prescriptions: New lamoTRIgine [LaMICtal] 25 mg PO BID 30 Days #60 tab buPROPion XL [Wellbutrin XL] 150 mg PO DAILY 30 Days #30 tab hydrOXYzine pamoate [Vistaril] 50 mg PO DAILY PRN 15 Days #30 capsule PRN Reason: Anxiety Continue Insulin Aspart (For Pump) [NovoLOG (For Pump)] 0.01 unit SQ-PUMP CONTINUOUS Discontinued Escitalopram [Lexapro] 10 mg PO HS Discharge Medication List Insulin Aspart (For Pump) [NovoLOG (For Pump)] 0.01 unit SQ-PUMP CONTINUOUS 10/08/22 [History] buPROPion XL [Wellbutrin XL] 150 mg PO DAILY 30 Days #30 tab 04/09/23 [Rx] hydrOXYzine pamoate [Vistaril] 50 mg PO DAILY PRN 15 Days #30 capsule 04/09/23 [Rx] lamoTRIgine [LaMICtal] 25 mg PO BID 30 Days #60 tab 04/09/23 [Rx] Follow up Appointment(s)/Referral(s): Rosaline Ritter Confucianism Messenger Floorperson [Outside] - 04/15/23 3:00 pm (Mathew Headley) [facility] Week Patient Instructions/Handouts: Depression (DC) Discharge Disposition: HOME SELF-CARE
== END 2023-04-09 12:45 | disposition home or self-care (01) | DRG 881 ==
LOC: EC 20:21 → 3MHU 04-05 18:44
PROVIDERS: ADMIT Psychiatry & Neurology Psychiatry; ATTEND Psychiatry & Neurology Psychiatry
DX: F32.9 Major depressive disorder, single episode, unspecified (principal); R45.851 Suicidal ideations; F41.9 Anxiety disorder, unspecified; E10.9 Type 1 diabetes mellitus without complications; H91.90 Unspecified hearing loss, unspecified ear; S61.512A Laceration without foreign body of left wrist, initial encounter; E66.01 Morbid (severe) obesity due to excess calories; Z20.822 Contact with and (suspected) exposure to COVID-19; Z96.41 Presence of insulin pump (external) (internal); Z79.4 Long term (current) use of insulin; Z79.899 Other long term (current) drug therapy; Z81.8 Family history of other mental and behavioral disorders; Z87.891 Personal history of nicotine dependence; Z68.33 Body mass index [BMI] 33.0-33.9, adult; Z88.8 Allergy status to other drugs, medicaments and biological substances
CPT/HCPCS: 36415; 80053; 80061; 82075; 83036; 84443; 85025; 87635; 99285

== ENCOUNTER → 2023-07-19 | Outpatient (CLI) | payer BC ==
[2023-07-19 16:14] LABS: ALT 13 U/L (8-44); AST 14 U/L (13-35); Albumin 4.1 g/dL (3.8-4.9); Albumin/Globulin Ratio 1.46 Ratio (1.60-3.17); Alkaline Phosphatase 117 U/L (41-126); Blood Urea Nitrogen 11.7 mg/dL (9.0-27.0); Calcium 9.4 mg/dL (8.7-10.3); Carbon Dioxide 24.6 mmol/L (21.6-31.8); Chloride 101 mmol/L (96-109); Chol/HDL Ratio 2.74 Ratio; Globulin 2.8 g/dL (1.6-3.3); Glucose 124 mg/dL (70-110); LDL Cholesterol,Calculated 93.9 mg/dL (0.0-131.0); Potassium 4.2 mmol/L (3.5-5.5); Sodium 138 mmol/L (135-145); Total Bilirubin 0.3 mg/dL (0.3-1.2); Total Protein 6.9 g/dL (6.2-8.2)
== END | disposition home or self-care (01) ==
LOC: LABWHC1 12:16
PROVIDERS: ATTEND Internal Medicine
DX: E10.65 Type 1 diabetes mellitus with hyperglycemia (principal)
CPT/HCPCS: 36415; 80053; 80061; 83036

== ENCOUNTER 2024-02-12 10:54 | Emergency (ER) | payer BC ==
[2024-02-12] MEDS ORDERED: SODIUM CHLORIDE 0.9% 1,000 ML BAG ONE (11:35)
== END 2024-02-12 17:14 | disposition home or self-care (01) ==
LOC: EC 10:54
CPT/HCPCS: 93005; 96360; 99285

== ENCOUNTER → 2024-11-11 | Outpatient (CLI) | payer BC | END | disposition home or self-care (01) | LOC: LABWHC1 10:20 | PROVIDERS: ATTEND Nurse Practitioner Gerontology | DX: E10.65 Type 1 diabetes mellitus with hyperglycemia (principal) | CPT/HCPCS: 36415; 83036 ==

== ENCOUNTER 2024-12-19 06:57 | Day surgery (SDC) | payer BC ==
[2024-12-18 12:43] VITALS: BMI 36.7
[~2024-12-19 06:57] MED LIST changes: +LIDOCAINE 1% (10MG/ML) FOR IV START INTRADERMA PRN; -Pre Op ABX Message 1 EACH MISC MISCELLANE ONE
[2024-12-19 07:24] VITALS: RESP 16
[2024-12-19] MEDS: LACTATED RINGERS 1,000 ML IV SCH (07:28)
[2024-12-19 07:31] LABS: Glucose,Whole Blood 185 mg/dL (70-110)
[2024-12-19] MEDS: IV FLUID CONTINUATION 1,000 ML IV ONE (07:31)
[2024-12-19] MEDS ORDERED: LIDOCAINE 1% INJ 10MG/ML (20 ML MDV) ONE (07:58)
[2024-12-19] MEDS ORDERED: PROPOFOL 10 MG/ML 20 ML VIAL IV ONE (07:58)
--- NOTE | 2024-12-19 08:07 | P.PCN ---
Date of Procedure: 12/19/24 Procedure(s) Performed: BRIEF HISTORY: Patient is a 31-year-old, pleasant, white female scheduled up anoscopy for evaluation of intermittent epigastric and right upper quadrant abdominal pain for the last several months duration. She denies any nausea vomiting. Lately her symptoms have been progressively getting worse. She was started on prophy with Pepcid 20 mg for 2 weeks and so far no help.. PROCEDURE PERFORMED: Esophagogastroduodenoscopy with biopsy. PREOPERATIVE DIAGNOSIS: Intermittent epigastric and right upper quadrant abdominal. IV sedation per anesthesia. PROCEDURE: After informed consent was obtained, the patient was brought into the endoscopy unit. IV sedation was administered by Anesthesia under continuous monitoring. Initially the Olympus GIF-140 video endoscope was inserted into the mouth. Esophagus intubated without any difficulty. It was gradually advanced into the stomach and duodenum and carefully examined. The bulb and the second part of the duodenum appeared normal. Biopsies were done from the duodenum rule out celiac disease. The scope at this time was withdrawn to the stomach, adequately insufflated with air, and upon careful examination, mucosa of the antrum, and mild gastritis and biopsies were done from this area. Mucosa of the body, cardia and the fundus appeared normal. The scope was then withdrawn into the esophagus. The GE junction was located at 39 cm from the incisors. Small hiatal hernia noted. There was 1 superficial erosion in the distal esophagus consistent with LA grade B reflux esophagitis. The rest of the esophagus appeared normal. Biopsies were done from the distal esophagus and the patient tolerated the procedure well. IMPRESSION: 1. Mild antral gastritis. 2. Small hiatal hernia 3. 1 superficial erosion in the distal esophagus consistent with LA grade B reflux esophagitis. RECOMMENDATIONS: The findings of this examination were discussed with the patient as well as her family. She was advised to follow-up with the biopsy results.. Advised to stop the Pepcid. Start Prilosec 40 mg daily and follow antireflux measures. Follow-up in the office in 3 to 4 weeks.
[2024-12-19 08:31] VITALS: BP 110/70; PULSE 78
== END 2024-12-19 08:45 | disposition home or self-care (01) ==
LOC: ORWHC2ENDO 06:57
PROVIDERS: ATTEND Internal Medicine Gastroenterology
DX: K29.50 Unspecified chronic gastritis without bleeding (principal); K44.9 Diaphragmatic hernia without obstruction or gangrene; K21.00 Gastro-esophageal reflux disease with esophagitis, without bleeding
CPT/HCPCS: 81025; 43239; J2003; J2704; 88305